=== PATIENT | female | born 1985 | race Two or more races ===

== ENCOUNTER 2019-05-28 08:42 | Inpatient (IN) | payer MEDICAID ==
[~2019-05-28] VITALS: Ht 165.1 cm; Wt 87.2 kg
[2019-05-28 09:34] LABS: Urine WBC None Seen /hpf (0 - 5)
[2019-05-28 09:43] LABS: Urine Bacteria MOD /hpf (None Seen); Urine Blood 1+ /uL (Negative); Urine Mucus FEW (None Seen); Urine Specific Gravity 1.028 (1.001-1.035)
[2019-05-28 09:59] LABS: Basophils # (auto) 0 uL; Basophils % (auto) 0.3 % (0.0-2.0); Eosinophils # (auto) 0.1 uL; Eosinophils % (auto) 1.4 % (0.0-7.0); Hematocrit 42.7 % (36.0-46.0); Hemoglobin 14.4 g/dL (12.2-16.2); Lymphocytes # (auto) 1.7 uL; Mean Corpuscular Hgb Conc. 33.8 g/dL (32.0-36.0); Mean Corpuscular Volume 85.7 fL (80.0-100.0); Monocytes # (auto) 0.2 uL; Monocytes % (auto) 3.8 % (0.0-12.0); Neutrophils # (auto) 4.1 uL; Neutrophils % (auto) 67.5 % (37.0-80.0); Nucleated Red Blood Cells % 0.2 %; Platelet Count (auto) 166 10^3/uL (140-450); Red Blood Cells 4.98 10^6/uL (4.0-5.20); Red Cell Distribution Width 13.2 % (11.8-14.3); White Blood Cell 6.1 10^3/uL (4.4-10.8)
[2019-05-28 10:20] LABS: Albumin 3.7 g/dL (3.4-5.0); BUN/Creatinine Ratio 16.7; Calcium 8.2 mg/dL (8.5-10.1); Potassium 4.2 mmol/L (3.5-5.1)
[2019-05-28 10:23] LABS: Bilirubin, Total 0.4 mg/dL (0.2-1.0); Total Protein 7.6 g/dL (6.4-8.2)
[2019-05-28] MEDS ORDERED: IOHEXOL 300 MG/ML 100ML BOTTLE IJ ONE (11:09)
[2019-05-28] MEDS ORDERED: MORPHINE SULF INJ 2 MG/ML SYRINGE 1ML IV PRN (13:45)
[2019-05-28] MEDS ORDERED: NITROGLYCERIN 0.4 MG SL TAB SL PRN (13:45)
[2019-05-28] MEDS: SODIUM CHLORIDE 0.9% 1,000 ML IV SCH ×2 (13:55→21:45)
[2019-05-28] MEDS: metroNIDAZOLE 500MG/100ML 100 ML IV SCH ×2 (14:04→21:33)
--- NOTE | 2019-05-28 14:36 | NUR ---
MS admit from ER BETO SELBY admitted to tele/MS after SBAR received. Patient oriented to NIYA SPEARS RN primary RN, unit, room, bed, and unit policies regarding patient care and visiting hours. Patient weighed by bedscale and encouraged to call if they need something. All questions and concerns addressed, patient verbalized understanding.
[2019-05-28 15:30] VITALS: BP 149/94
[2019-05-28 16:59] VITALS: BP 126/76
--- NOTE | 2019-05-28 18:00 | NUR ---
Page to Hospitalist Page to Hospitalist, Shahid MAHMOOD, at this time regarding patient's history of palpitations and wearing a heart monitor from her primary provider. Patient is currently MS status. Awaiting callback.
[2019-05-28 18:20] VITALS: BP 149/94
--- NOTE | 2019-05-28 19:00 | NUR ---
Page to Hospitalist Re-page to hospitalist. Awaiting callback.
--- NOTE | 2019-05-28 19:18 | NUR ---
Closing Shift Note Patient is resting in bed. No distress noted. No complaints of pain. Report given. Will endorse care to the investment specialist RN.
--- NOTE | 2019-05-28 19:39 | NUR ---
New orders received Call back from [employer] [employer]. New orders given. Will notify maintenance mechanic 2nd shift RN and continue to endorse care.
--- NOTE | 2019-05-28 20:00 | NUR ---
Opening Shift Note Assumed care of patient, awake and alert. No S/S of distress/SOB or pain. Instructed on POC and to call for assist PRN, will continue to monitor for changes Q1hr and PRN.
[2019-05-28] MEDS: ACETAMINOPHEN 500 MG TAB PO PRN (20:11)
[2019-05-28] MEDS: FAMOTIDINE (10MG/ML) 2ML VL IV SCH (21:33)
[2019-05-28 21:54] VITALS: BP 126/72
[2019-05-29 04:51] VITALS: BP 122/66
[2019-05-29 05:31] LABS: Basophils # (auto) 0 uL; Basophils % (auto) 0.4 % (0.0-2.0); Eosinophils # (auto) 0.1 uL; Eosinophils % (auto) 1.9 % (0.0-7.0); Hematocrit 39.2 % (36.0-46.0); Hemoglobin 13.4 g/dL (12.2-16.2); Lymphocytes # (auto) 1.7 uL; Lymphocytes % (auto) 35.6 % (10.0-50.0); Mean Corpuscular Hemoglobin 29.2 pg (28.0-32.0); Mean Corpuscular Hgb Conc. 34.2 g/dL (32.0-36.0); Mean Corpuscular Volume 85.5 fL (80.0-100.0); Monocytes # (auto) 0.3 uL; Monocytes % (auto) 6.2 % (0.0-12.0); Neutrophils # (auto) 2.7 uL; Neutrophils % (auto) 55.9 % (37.0-80.0); Nucleated Red Blood Cells % 0.1 %; Platelet Count (auto) 147 10^3/uL (140-450); Red Blood Cells 4.59 10^6/uL (4.0-5.20); Red Cell Distribution Width 13.3 % (11.8-14.3); White Blood Cell 4.9 10^3/uL (4.4-10.8)
[2019-05-29] MEDS: metroNIDAZOLE 500MG/100ML 100 ML IV SCH ×3 (05:40→21:25)
[2019-05-29 05:51] LABS: Calcium 7.7 mg/dL (8.5-10.1); INR 1.11 (0.9-1.15); Partial Thromboplastin Time 26.6 sec (23.64-32.05); Potassium 3.5 mmol/L (3.5-5.1)
[2019-05-29 05:53] LABS: BUN/Creatinine Ratio 14.3
[2019-05-29 05:55] LABS: Bilirubin, Total 0.6 mg/dL (0.2-1.0); Total Protein 6.1 g/dL (6.4-8.2)
[2019-05-29] MEDS: SODIUM CHLORIDE 0.9% 1,000 ML IV SCH ×3 (05:58→21:26)
--- NOTE | 2019-05-29 07:18 | NUR ---
Opening Shift Note Assumed care of patient from material handler 1st shift nurse. Patient alert and orientedx4, resting in bed comfortably. No signs of distress noted. IV flushed and patent. No redness or erythema noted. Patient updated on plan of care and verbalizes understanding. Bed in lowest position call light in reach.
[2019-05-29 09:00] VITALS: BP 125/67
--- NOTE | 2019-05-29 09:05 | NUR ---
IV removal IV DC'd to left antecubital with sterile technique due to high pressure and difficulty infusing, catheter fully intact. Pressure dressing applied to site. Patient tolerated procedure well. Discharged with aftercare instructions per MD. IV insertion IV access obtained, via clean technique by inserting 20 gauge catheter at right forearm. IV secured properly. No trauma to site. Patient tolerated procedure well.
[2019-05-29] MEDS: FAMOTIDINE (10MG/ML) 2ML VL IV SCH ×2 (09:53→21:24)
[2019-05-29] MEDS: LEVOFLOXACIN 500MG 100 ML IV SCH (09:53)
[2019-05-29] MEDS: ACETAMINOPHEN 500 MG TAB PO PRN (09:53)
[2019-05-29 13:00] VITALS: BP 116/73
[2019-05-29 16:43] VITALS: BP 132/77
--- NOTE | 2019-05-29 19:02 | NUR ---
Care endorsed to ANAIS Boland, night nurse.
[2019-05-29 22:00] VITALS: BP 145/79
[2019-05-30 05:00] VITALS: BP 112/77
[2019-05-30 05:51] LABS: Basophils # (auto) 0 uL; Basophils % (auto) 0.7 % (0.0-2.0); Eosinophils # (auto) 0.1 uL; Eosinophils % (auto) 1.9 % (0.0-7.0); Hematocrit 38.1 % (36.0-46.0); Hemoglobin 13.2 g/dL (12.2-16.2); Lymphocytes # (auto) 1.5 uL; Lymphocytes % (auto) 31.3 % (10.0-50.0); Mean Corpuscular Hemoglobin 29.1 pg (28.0-32.0); Mean Corpuscular Hgb Conc. 34.5 g/dL (32.0-36.0); Mean Corpuscular Volume 84.3 fL (80.0-100.0); Monocytes # (auto) 0.3 uL; Neutrophils # (auto) 2.9 uL; Neutrophils % (auto) 59.1 % (37.0-80.0); Nucleated Red Blood Cells % 0.2 %; Platelet Count (auto) 163 10^3/uL (140-450); Red Blood Cells 4.53 10^6/uL (4.0-5.20); Red Cell Distribution Width 12.9 % (11.8-14.3); White Blood Cell 4.9 10^3/uL (4.4-10.8)
[2019-05-30] MEDS: metroNIDAZOLE 500MG/100ML 100 ML IV SCH ×3 (06:13→21:35)
[2019-05-30] MEDS: SODIUM CHLORIDE 0.9% 1,000 ML IV SCH ×3 (06:13→20:08)
[2019-05-30 06:29] LABS: Albumin 3.2 g/dL (3.4-5.0); Calcium 7.9 mg/dL (8.5-10.1); Potassium 3.8 mmol/L (3.5-5.1)
[2019-05-30 06:31] LABS: BUN/Creatinine Ratio 11.1
[2019-05-30 06:34] LABS: Bilirubin, Total 0.4 mg/dL (0.2-1.0); Total Protein 6.3 g/dL (6.4-8.2)
--- NOTE | 2019-05-30 07:05 | NUR ---
Opening Note Received report on the patient. Awake lying in bed. Patient shows no signs of distress at this time. Discussed plan of care with the patient. Bed in lowest position, side rails up x2, and the call light is within reach. Will continue to monitor.
[2019-05-30 09:00] VITALS: BP 131/79
[2019-05-30] MEDS ORDERED: ceFAZolin 1GM/50ML 50 ML IV ONE (09:28)
[2019-05-30] MEDS ORDERED: MEPERIDINE HCL (25 MG/ML) 1ML VIAL ONE (09:34)
[2019-05-30] MEDS ORDERED: MIDAZOLAM HCL 1MG/1ML-2 ML VIAL ONE (09:34)
[2019-05-30] MEDS ORDERED: fentaNYL CITRATE 100 MCG/2 ML VL ONE (09:34)
[2019-05-30] MEDS ORDERED: ROCURONIUM 10MG/ML 10ML VIAL IV ONE (09:35)
[2019-05-30] MEDS ORDERED: LIDOCAINE 2% (LOCAL ANESTH.) PF 5ml SDV ONE (09:35)
[2019-05-30] MEDS ORDERED: ONDANSETRON HCL 4 MG/2 ML VIAL ONE (09:35)
[2019-05-30] MEDS ORDERED: SODIUM CHLORIDE LOCK 20 ML ONE (09:35)
[2019-05-30] MEDS ORDERED: LIDOCAINE HCL 2% TOP JELLY 5ML TOP ONE (09:35)
--- NOTE | 2019-05-30 09:35 | NUR ---
Patient taken down to the OR for lap/ada. Patient shows no signs of distress at this time.
[2019-05-30] MEDS ORDERED: SUCCINYLCHOLINE CHLORIDE 20 MG/ML 10ML VIAL IV ONE (09:37)
[2019-05-30] MEDS: LEVOFLOXACIN 500MG 100 ML IV SCH (10:00)
[2019-05-30] MEDS: FAMOTIDINE (10MG/ML) 2ML VL IV SCH ×2 (10:00→21:35)
[2019-05-30] MEDS ORDERED: MORPHINE SULFATE 4 MG/ML SYR/VIAL IV PRN (10:15)
[2019-05-30] MEDS ORDERED: KETOROLAC TROMETH 30 MG/ML 1ML VIAL IV ONE (10:15)
[2019-05-30] MEDS ORDERED: fentaNYL CITRATE 100 MCG/2 ML VL IV PRN (10:15)
[2019-05-30] MEDS ORDERED: METOCLOPRAMIDE HCL 5MG/ml INJ 2ml VIAL IV PRN (10:15)
[2019-05-30] MEDS ORDERED: GLYCOPYRROLATE 0.2 MG/ML 1ML VIAL ONE (10:58)
[2019-05-30] MEDS ORDERED: NEOSTIGMINE 1 MG/ML INJ (10mg/10ML VIAL) ONE (10:58)
--- NOTE | 2019-05-30 11:17 | NUR ---
Nutrition Assessment Notes please see attached link for complete assessment Est. Needs ABW [id number] kcal (23-25 kcal/kgBW), 71-78 gms pro (1.0-1.1 gms/kgBW). Will continue to monitor pertinent labs and reassess nutrient need prn Addendum: 05/30/19 at [address] Amended: Links added.
[2019-05-30] MEDS: HYDROmorphone HCL 2 MG/ML VL IV PRN ×2 (12:17→12:27)
[2019-05-30 13:00] VITALS: BP 113/68
[2019-05-30 13:23] LABS: Albumin 3.1 g/dL (3.4-5.0); BUN/Creatinine Ratio 9.4; Calcium 7.8 mg/dL (8.5-10.1); Potassium 3.5 mmol/L (3.5-5.1)
[2019-05-30 13:26] LABS: Bilirubin, Total 0.6 mg/dL (0.2-1.0); Total Protein 6.2 g/dL (6.4-8.2)
[2019-05-30 16:47] VITALS: BP 111/65
--- NOTE | 2019-05-30 19:30 | NUR ---
Care endorsed to ANAIS Franco, night nurse.
--- NOTE | 2019-05-30 19:30 | NUR ---
Opening Shift Note Assumed care of patient, awake and alert oriented x4. No S/S of distress/SOB noted. Bed is in lowest locked position with bed rails up x2 and call light is within reach of the patient. Instructed on POC and to call for assist PRN. Patient is post procedure cholecystectomy. Patient has complaints of some burning pain at the site. To medicate with PRN medication for pain. Patient has three incisions to the abdomen with abdominal binder in place. Top incision has minimal serosanguineous blood on dressing. Dressings intact overall. Educated patient about ambulation and use of incentive spirometry and to keep abdominal binder in place. Patient verbalized understanding.
[2019-05-30] MEDS: MORPHINE SULF INJ 2 MG/ML SYRINGE 1ML IV PRN (20:08)
--- NOTE | 2019-05-30 20:15 | NUR ---
IV removal IV DC'd with clean sterile technique, catheter fully intact. Pressure dressing applied to site and wrapped with coband. Patient tolerated well.
--- NOTE | 2019-05-30 20:30 | NUR ---
IV insertion IV access obtained, via clean sterile technique by inserting 22 gauge catheter at left forearm. IV secured properly. No trauma to site. Patient tolerated well.
[2019-05-30 22:00] VITALS: BP 120/65
[2019-05-30] MEDS: ACETAMINOPHEN 500 MG TAB PO PRN (23:30)
[2019-05-31 05:00] VITALS: BP 114/83
[2019-05-31] MEDS: metroNIDAZOLE 500MG/100ML 100 ML IV SCH ×3 (05:39→22:20)
[2019-05-31] MEDS: ACETAMINOPHEN 500 MG TAB PO PRN ×2 (05:39→11:46)
[2019-05-31] MEDS: SODIUM CHLORIDE 0.9% 1,000 ML IV SCH ×2 (05:42→15:05)
--- NOTE | 2019-05-31 06:55 | NUR ---
Closing note: Patient is resting in bed with breaths even and unlabored. Bed alarm armed. No s/s of distress SOB or pain noted. Bed is in lowest locked position with bed rails up x2 and call light is within reach of the patient. Will endorse care to day shift nurse.
--- NOTE | 2019-05-31 07:58 | NUR ---
Opening Shift Note Assumed care of patient, awake and alert sitting up in bed conversing on phone. No S/S of distress/SOB or pain. Instructed on POC and to call for assist PRN, will continue to monitor for changes Q1hr and PRN.
[2019-05-31 09:00] VITALS: BP_SYST 128; BP_SYST 133; BP_DIAS 69; BP_DIAS 73
[2019-05-31] MEDS: LEVOFLOXACIN 500MG 100 ML IV SCH (09:30)
[2019-05-31] MEDS: FAMOTIDINE (10MG/ML) 2ML VL IV SCH ×2 (09:30→22:20)
--- NOTE | 2019-05-31 16:30 | NUR ---
Advance Diet Phone call received from Dr. Gonsales to advance diet as tolerated.
[2019-05-31 17:00] VITALS: BP 135/91
[2019-05-31] MEDS: MORPHINE SULF INJ 2 MG/ML SYRINGE 1ML IV PRN (17:13)
--- NOTE | 2019-05-31 19:30 | NUR ---
Opening Shift Note Assumed care of patient, alert and oriented x4. On room air and ambulatory. No S/S of distress/SOB or pain. S/P ada, dressing to ABD minimal serosanguineous drainage noted. ABD binder in place. Bed in lowest locked position, side rails up x2, call light within reach. Instructed on POC and to call for assist PRN, will continue to monitor for changes Q1hr and PRN.
[2019-05-31 20:00] VITALS: BP 130/70
[2019-05-31 22:00] VITALS: BP 130/70
[2019-06-01] MEDS: SODIUM CHLORIDE 0.9% 1,000 ML IV SCH ×2 (02:12→05:39)
[2019-06-01 05:00] VITALS: BP 132/79
[2019-06-01] MEDS: metroNIDAZOLE 500MG/100ML 100 ML IV SCH (05:39)
[2019-06-01 05:46] LABS: Basophils # (auto) 0 uL; Basophils % (auto) 0.3 % (0.0-2.0); Eosinophils # (auto) 0.1 uL; Hematocrit 38.1 % (36.0-46.0); Hemoglobin 13.2 g/dL (12.2-16.2); Lymphocytes # (auto) 1.4 uL; Lymphocytes % (auto) 21.1 % (10.0-50.0); Mean Corpuscular Hemoglobin 29.4 pg (28.0-32.0); Mean Corpuscular Hgb Conc. 34.7 g/dL (32.0-36.0); Mean Corpuscular Volume 84.9 fL (80.0-100.0); Monocytes # (auto) 0.4 uL; Monocytes % (auto) 5.5 % (0.0-12.0); Neutrophils # (auto) 4.6 uL; Neutrophils % (auto) 71.1 % (37.0-80.0); Nucleated Red Blood Cells % 0.1 %; Platelet Count (auto) 154 10^3/uL (140-450); Red Blood Cells 4.49 10^6/uL (4.0-5.20); Red Cell Distribution Width 13.3 % (11.8-14.3); White Blood Cell 6.5 10^3/uL (4.4-10.8)
[2019-06-01 06:09] LABS: Albumin 2.9 g/dL (3.4-5.0); Calcium 7.8 mg/dL (8.5-10.1); Potassium 3.4 mmol/L (3.5-5.1)
[2019-06-01 06:13] LABS: BUN/Creatinine Ratio 11.5; Bilirubin, Total 0.4 mg/dL (0.2-1.0)
[2019-06-01 08:33] VITALS: BP 133/77
--- NOTE | 2019-06-01 09:00 | NUR ---
Patient tolerated breakfast well.
[2019-06-01] MEDS: LEVOFLOXACIN 500MG 100 ML IV SCH (10:07)
[2019-06-01] MEDS: FAMOTIDINE (10MG/ML) 2ML VL IV SCH (10:08)
[2019-06-01] MEDS ORDERED: POTASSIUM CHL 20 Meq TABLET PO ONE (10:45)
--- NOTE | 2019-06-01 10:57 | NUR ---
Dr. Ja Gonsales in to see patient as hospitalist.
[2019-06-01 11:20] VITALS: BP 133/77
== END 2019-06-01 12:35 | disposition home or self-care (01) | DRG 263 ==
LOC: ER 08:42 → OVERFLOW 08:43 → WEST WING 14:31 → TELE-WESTW 21:48
PROVIDERS: ADMIT Nurse Practitioner Acute Care; ATTEND Internal Medicine
PROC: 0FT44ZZ Resection of Gallbladder, Percutaneous Endoscopic Approach (ICD-10-PCS; principal; 2019-05-30 10:15)
DX: K80.00 Calculus of gallbladder with acute cholecystitis without obstruction (principal); E44.0 Moderate protein-calorie malnutrition; E66.01 Morbid (severe) obesity due to excess calories; N39.0 Urinary tract infection, site not specified; K57.30 Diverticulosis of large intestine without perforation or abscess without bleeding; Z68.32 Body mass index [BMI] 32.0-32.9, adult
CPT/HCPCS: 36415; 74177; 76705; 78226; 80053; 81001; 81025; 82248; 82270; 83690; 85025; 85610; 85730; 86850; 86900; 86901; 96361; 96365; 96375; G0378; J0330; J0690; J1956; J2001; J2250; J2405; J3490